=== PATIENT | female | born 1935 | race Caucasian/White ===

== ENCOUNTER 2017-09-08 21:40 | Observation (INO) | payer OTHER ==
[~2017-09-08] VITALS: Ht 160 cm; Wt 75.0 kg
[2017-09-08 21:44] VITALS: BP 198/88; PULSE 74; RESP 16; O2SAT 96
[2017-09-08] MEDS ORDERED: ASPI-516 CHEW (21:53)
[2017-09-08] MEDS ORDERED: SIMV20TA PO (21:53)
[2017-09-08] MEDS ORDERED: HYDR12.56 PO (21:53)
[2017-09-08] MEDS ORDERED: OMEP20TA93 PO (21:53)
[2017-09-08] MEDS ORDERED: TETANUS/DIPHTHERIA TOXOID ADULT 0.5 ML VIAL IM ONE (22:15)
[2017-09-08] MEDS ORDERED: LIDOCAINE HCL 1% 30 ML VIAL INFIL ONE (22:15)
[2017-09-08] MEDS ORDERED: ONDANSETRON HCL 4 MG/2 ML VIAL IV PUSH ONE (22:15)
--- NOTE | 2017-09-08 22:24 | PD ---
HPI Chief Complaint: Fall Time Seen by Provider: 21:50 Travel History International Travel<30 days: No Contact w/Intl Traveler<30days: No Traveled to known affect area: No History of Present Illness HPI 82-year-old female that presents to the ED for evaluation of trip and fall and head injury. Patient does not recall the fall. Patient only [place] She does feel nauseous. She does have a laceration to the left forehead. She denies any blood thinners. She denies any other injuries. No chest pain or abdominal pain. No back pain. She was brought here by ambulance for evaluation of this. Fall was witnessed by family members. Patient was put in a cervical collar secondary to the injury. She has not thrown but she feels nauseous. She is unsure of her last tetanus booster. She states that the pain is mainly to the head and is 6 out of 10. She has not been given anything for this. She denies any previous head injuries or neck injuries. She does have allergies to Bactrim and Macrobid. No other medical issues at this time. She does have a superficial abrasion to the left hand but able to move the fingers fully. He has a very superficial 1 cm laceration to the left forehead. minimal bleeding noted. PFSH Past Medical History Coronary Artery Disease: Yes Hypertension: Yes Tetanus Vaccination: Unknown ?: Not Past Surgical History Joint Replacement: Yes (right shoulder) Social History Alcohol Use: No Tobacco Use: No Substance Use: No Allergies-Medications (Allergen,Severity, Reaction): Coded Allergies: Sulfa (Sulfonamide Antibiotics) (Verified Allergy, Unknown, 09/08/17) nitrofurantoin (Verified Allergy, Unknown, 09/08/17) Reported Meds & Prescriptions Reported Meds & Active Scripts Active Reported Aspirin 81 Mg Chew 81 Mg CHEW DAILY Simvastatin 20 Mg Tab 20 Mg PO DAILY Omeprazole 20 Mg Tab 20 Mg PO DAILY Hydrochlorothiazide 12.5 Mg Tab 12.5 Mg PO DAILY Review of Systems Except as stated in HPI: all other systems reviewed are Neg Physical Exam Narrative GENERAL: SKIN: Warm and dry. HEAD: Atraumatic. Normocephalic. Patient has a superficial laceration which is about 1 cm on the left temporal area around the eyebrow. Minimal bleeding. Well approximated. EYES: Pupils equal and round 4 mm reactive to light and accommodation.. No scleral icterus. No injection or drainage. ENT: No nasal bleeding or discharge. Mucous membranes pink and moist. Tongue is midline. No uvula deviation. NECK: Trachea midline. No JVD. CARDIOVASCULAR: Regular rate and rhythm. RESPIRATORY: No accessory muscle use. Clear to auscultation. Breath sounds equal bilaterally. GASTROINTESTINAL: Abdomen soft, non-tender, nondistended. Hepatic and splenic margins not palpable. MUSCULOSKELETAL: Extremities without clubbing, cyanosis, or edema. No obvious deformities. Full range of motion of the upper and lower extremities bilaterally. No lumbar, thoracic, cervical spine tenderness to palpation. Patient was seen with cervical collar noted. Patient has full range of motion of all digits. Patient does have a very small abrasion to the left hand. NEUROLOGICAL: Awake and alert. No obvious cranial nerve deficits. Motor grossly within normal limits. Five out of 5 muscle strength in the arms and legs. Normal speech. PSYCHIATRIC: Appropriate mood and affect; insight and judgment normal. Data Data Last Documented VS Vital Signs Date Time Temp Pulse Resp B/P (MAP) Pulse Ox O2 Delivery O2 Flow Rate FiO2 09/08/17 21:50 Room Air 09/08/17 21:44 74 16 198/88 (124) 96 Orders Orders Complete Blood Count With Diff (09/08/17 22:08) Basic Metabolic Panel (Bmp) (09/08/17 22:08) Prothrombin Time / Inr (Pt) (09/08/17 22:08) Act Partial Throm Time (Ptt) (09/08/17 22:08) Iv Access Insert/Monitor (09/08/17 22:08) Ct Brain W/O Iv Contrast(Rout) (09/08/17 22:08) Ct Cerv Spine W/O Contrast (09/08/17 22:08) Chest, Single Ap (09/08/17 22:08) Pelvis, Ap Only (Routine) (09/08/17 22:08) Ondansetron Inj (Zofran Inj) (09/08/17 22:15) Tetanus/Diphtheria Tox Adult (Tetanus/Di (09/08/17 22:15) Lidocaine 1% Inj (Xylocaine 1% Inj) (09/08/17 22:15) Labs Laboratory Tests Test 09/08/17 22:05 White Blood Count 8.7 TH/MM3 Red Blood Count 4.51 MIL/MM3 Hemoglobin 13.0 GM/DL Hematocrit 38.6 % Mean Corpuscular Volume 85.7 FL Mean Corpuscular Hemoglobin 28.7 PG Mean Corpuscular Hemoglobin Concent 33.5 % Red Cell Distribution Width 15.0 % Platelet Count 218 TH/MM3 Mean Platelet Volume 8.4 FL Neutrophils (%) (Auto) 54.4 % Lymphocytes (%) (Auto) 32.6 % Monocytes (%) (Auto) 9.0 % Eosinophils (%) (Auto) 3.2 % Basophils (%) (Auto) 0.8 % Neutrophils # (Auto) 4.7 TH/MM3 Lymphocytes # (Auto) 2.8 TH/MM3 Monocytes # (Auto) 0.8 TH/MM3 Eosinophils # (Auto) 0.3 TH/MM3 Basophils # (Auto) 0.1 TH/MM3 CBC Comment DIFF FINAL Differential Comment Prothrombin Time 10.6 SEC Prothromb Time International Ratio 1.0 RATIO Activated Partial Thromboplast Time 21.9 SEC Blood Urea Nitrogen 30 MG/DL Creatinine 1.04 MG/DL Random Glucose 131 MG/DL Calcium Level 8.6 MG/DL Sodium Level 140 MEQ/L Potassium Level 3.1 MEQ/L Chloride Level 103 MEQ/L Carbon Dioxide Level 28.0 MEQ/L Anion Gap 9 MEQ/L Estimat Glomerular Filtration Rate 50 ML/MIN MDM Medical Decision Making Medical Screen Exam Complete: Yes Emergency Medical Condition: Yes Medical Record Reviewed: Yes Differential Diagnosis Head injury versus fracture versus laceration versus concussion versus ICH normal exam Narrative Course 82-year-old female that presents to the ED for evaluation of head injury. Labs and imaging were ordered. Case discussed with my attending Dr. Castañeda who agrees with plan. Case will be sent out to him pending disposition. Procedures Procedure Narrative LACERATION LOCATION: left eyebrow LENGTH: 1 cm NUMBER OF STITCHES/MARY: 4 sutures REPAIR: The area of the laceration was prepped with Betadine and sterilely draped. The laceration was infiltrated with 1% Xylocaine. The wound was copiously irrigated and explored without evidence of foreign body, tendon injury or neurovascular injury. The wound was closed using 4-0 Ethilone. This was a 1 layer repair. A sterile dressing was applied. The patient was advised to keep the dressing clean and dry. Patient tolerated the procedure well. Arie Cordero Sep 08, 2017 22:23
--- NOTE | 2017-09-08 22:32 | RADRPT ---
EXAM DATE/TIME: 09/08/2017 22:17 [facility] COMPARISON: No previous studies available for comparison. INDICATIONS : Fall. Chest pain. MEDICAL HISTORY : None. SURGICAL HISTORY : None. ENCOUNTER: Initial ACUITY: 1 day PAIN SCORE: 7/10 LOCATION: Bilateral chest FINDINGS: A single view of the chest demonstrates the lungs to be symmetrically aerated without evidence of mas s, infiltrate or effusion. Eventration of the right hemidiaphragm. The cardiomediastinal contours ar e unremarkable. Osseous structures are intact. A right humeral head prosthesis. CONCLUSION: No acute disease. Nilesh Guzman Jr., MD on September 08, 2017 at 22:31 Board Certified Radiologist. This report was verified electronically.
[2017-09-08 22:35] LABS: AUTOMATED NEUTROPHIL # 4.7 TH/MM3 (1.8-7.7); BASOPHIL # 0.1 TH/MM3 (0-0.2); BASOPHIL % 0.8 % (0.0-2.0); EOSINOPHIL # 0.3 TH/MM3 (0-0.4); EOSINOPHIL % 3.2 % (0.0-4.0); HEMATOCRIT 38.6 % (35.0-46.0); HEMO FLAGS DIFF FINAL; LYMPH % 32.6 % (9.0-44.0); LYMPHOCYTE # 2.8 TH/MM3 (1.0-4.8); MEAN CELL VOLUME 85.7 FL (80.0-100.0); MEAN CORPUSCULAR HEMOGLOBIN 28.7 PG (27.0-34.0); MEAN CORPUSCULAR HGB CONC 33.5 % (32.0-36.0); NEUT % 54.4 % (16.0-70.0); PLATELET COUNT 218 TH/MM3 (150-450); RED BLOOD COUNT 4.51 MIL/MM3 (4.00-5.30); WHITE BLOOD COUNT 8.7 TH/MM3 (4.0-11.0)
--- NOTE | 2017-09-08 22:36 | RADRPT ---
EXAM DATE/TIME: 09/08/2017 22:18 [facility] COMPARISON: No previous studies available for comparison. INDICATIONS : Fall. Pelvic pain. MEDICAL HISTORY : None. SURGICAL HISTORY : None. ENCOUNTER: Initial ACUITY: 1 day PAIN SCORE: 6/10 LOCATION: Bilateral pelvis FINDINGS: A single frontal view of the pelvis demonstrates no evidence of fracture. The bony pelvic ring is in tact. Osteoarthritis involving the joints bilaterally. Bony mineralization is reduced. The soft tiss ues are intact. CONCLUSION: No acute disease. Nilesh Guzman Jr., MD on September 08, 2017 at 22:33 Board Certified Radiologist. This report was verified electronically.
[2017-09-08 22:40] LABS: POTASSIUM 3.1 MEQ/L (3.5-5.1)
[2017-09-08 22:45] LABS: PROTHROMBIN TIME - PATIENT 10.6 SEC (9.8-11.6)
[2017-09-08 22:46] LABS: APTT (PATIENT) 21.9 SEC (24.3-30.1)
--- NOTE | 2017-09-08 22:48 | RADRPT ---
EXAM DATE/TIME: 09/08/2017 22:32 [facility] COMPARISON: No previous studies available for comparison. INDICATIONS : Trauma; fall. RADIATION DOSE: 27.51 CTDIvol (mGy) MEDICAL HISTORY : Hypertension. Cardiovascular disease SURGICAL HISTORY : Right shoulder replacement. ENCOUNTER: Initial ACUITY: 1 day PAIN SCALE: 7/10 LOCATION: cranial TECHNIQUE: Multiple contiguous axial images were obtained of the head. Using automated exposure control and adj ustment of the mA and/or kV according to patient size, radiation dose was kept as low as reasonably a chievable to obtain optimal diagnostic quality images. DICOM format image data is available electro nically for review and comparison. FINDINGS: CEREBRUM: The ventricles are normal for age. No evidence of midline shift, mass lesion, hemorrhage or acute in farction. No extra-axial fluid collections are seen. POSTERIOR FOSSA: The cerebellum and brainstem are intact. The 4th ventricle is midline. The cerebellopontine angle i s unremarkable. EXTRACRANIAL: The visualized portion of the orbits is intact. Supraorbital soft tissue swelling on the left with a few tiny air bubbles within the subcutaneous tissues. A tiny 2-3 mm radiopaque density is seen within the superficial subcutaneous tissues along the left superolateral orbital rim. Density is matching t hat of the adjacent cortical bone. SKULL: The calvaria is intact. No evidence of skull fracture. CONCLUSION: 1. Left supraorbital soft tissue swelling with tiny radiopaque foreign body as detailed above. 2. No acute intracranial abnormality. Nilesh uGzman Jr., MD on September 08, 2017 at 22:45 Board Certified Radiologist. This report was verified electronically.
--- NOTE | 2017-09-08 22:59 | RADRPT ---
EXAM DATE/TIME: 09/08/2017 22:32 [facility] COMPARISON: No previous studies available for comparison. INDICATIONS : Trauma; fall. RADIATION DOSE: 18.82 CTDIvol (mGy) MEDICAL HISTORY : Hypertension. Cardiovascular disease SURGICAL HISTORY : Right shoulder replacement ENCOUNTER: Initial ACUITY: 1 day PAIN SCALE: 7/10 LOCATION: neck TECHNIQUE: Volumetric scanning of the cervical spine was performed. Multiplanar reconstructions in the sagittal, coronal and oblique axial planes were performed. Using automated exposure control and adjustment o f the mA and/or kV according to patient size, radiation dose was kept as low as reasonably achievable to obtain optimal diagnostic quality images. DICOM format image data is available electronically f or review and comparison. FINDINGS: VERTEBRAE: Normal vertebral body height. ALIGNMENT: No evidence of subluxation. C2-C3: The bony spinal canal is normal in size. No evidence of disc bulge or herniation. The neural forami na are bilaterally patent. C3-C4: The bony spinal canal is normal in size. No evidence of disc bulge or herniation. The neural forami na are bilaterally patent. C4-C5: The bony spinal canal is normal in size. No evidence of disc bulge or herniation. The neural forami na are bilaterally patent. C5-C6: The bony spinal canal is normal in size. No evidence of disc bulge or herniation. The neural forami na are bilaterally patent. C6-C7: The bony spinal canal is normal in size. No evidence of disc bulge or herniation. The neural forami na are bilaterally patent. C7-T1: The bony spinal canal is normal in size. No evidence of disc bulge or herniation. The neural forami na are bilaterally patent. CONCLUSION: 1. No fracture or dislocation. 2. Mild degenerative changes without neural impingement or central canal stenosis. Nilesh Guzman Jr., MD on September 08, 2017 at 22:54 Board Certified Radiologist. This report was verified electronically.
[2017-09-09] VITALS (9 sets, daily range): BP systolic 124–162; BP diastolic 57–99; PULSE 66–79; RESP 16–18; TEMP 97.4–98.1; O2SAT 93–99
[2017-09-09] MEDS ORDERED: ONDANSETRON HCL 4 MG/2 ML VIAL IV PUSH ONE
--- NOTE | 2017-09-09 00:40 | RADRPT ---
EXAM DATE/TIME: 09/09/2017 00:10 [facility] COMPARISON: No previous studies available for comparison. INDICATIONS : Fall. Left hand pain. MEDICAL HISTORY : None. SURGICAL HISTORY : None. ENCOUNTER: Initial ACUITY: 1 day PAIN SCORE: 5/10 LOCATION: Left upper extremity FINDINGS: There is no evidence of acute fracture. Bony mineralization is normal. There is osteoarthritis involv ing the first carpometacarpal compartment. There is erosive osteoarthritis involving all of the inter phalangeal joints. CONCLUSION: 1. There is no evidence of acute fracture. 2. Severe osteoarthritis Jason Chiu MD on September 09, 2017 at 0:37 Board Certified Radiologist. This report was verified electronically.
[2017-09-09] MEDS ORDERED: MORPHINE SULFATE 4 MG/ML INJ IV PUSH PRN (02:30)
[2017-09-09] MEDS ORDERED: ACETAMINOPHEN 325 MG TAB PO PRN (02:30)
[2017-09-09] MEDS ORDERED: LACTULOSE SYRUP 20 GM/30 ML CUP PO PRN (02:30)
[2017-09-09] MEDS ORDERED: SENNOSIDES 8.6 MG TAB PO PRN (02:30)
[2017-09-09] MEDS ORDERED: BISACODYL 10 MG SUPP RECTAL PRN (02:30)
[2017-09-09] MEDS ORDERED: SODIUM CHLORIDE 0.9% FLUSH 10 ML FLUSH IV FLUSH PRN (02:30)
[2017-09-09] MEDS ORDERED: MAGNESIUM HYDROXIDE SUSP 30 ML CUP PO PRN (02:30)
[2017-09-09] MEDS ORDERED: ONDANSETRON HCL 4 MG/2 ML VIAL IVP PRN (02:30)
[2017-09-09] MEDS ORDERED: POTASSIUM CHLORIDE 20 MEQ CONTROLLED RELEASE TAB PO ONE (02:30)
--- NOTE | 2017-09-09 02:47 | HHI.HP ---
[facility] Service [facility] ([place], [place])ists Primary Care Physician Unknown Admission Diagnosis syncope Diagnoses: (1) Syncope Diagnosis: Principal (2) Fall Diagnosis: Principal (3) Facial laceration Diagnosis: Principal (4) HTN (hypertension) Diagnosis: Principal (5) Hypokalemia Diagnosis: Principal (6) Renal insufficiency Diagnosis: Principal Travel History International Travel<30 Days: No Contact w/Intl Traveler <30 Da: No Traveled to Known Affected Are: No History of Present Illness This is an 82-year-old female with a PMH of HTN and CAD was brought to the ER by EMS secondary to fall with head injury. [place], states she was walking w/ Grandson when had sudden fall. Pt cannot recall event , states she remembers walking and then waking up with people around her. No h/ o similar symptoms in the past. CT Head/C-Spine w/ no acute findings. Hand/ Pelvis X-ray negative. +facial laceration s/p repair in ER. BP 198/88, HR 74, O2 sat 96% on arrival. Orthostatics positive. BP currently 142/91, HR 60. CBC unremarkable. K+ 3.1. Creatinine 1.04, no previous labs for comparison. Trop negative. While in ER, patient was assisted out of bed to ambulate, had sudden episode of dizziness and diaphoresis w/ near syncopal event. Review of Systems Except as stated in HPI: all other systems reviewed are Neg ROS: 14 point review of systems otherwise negative. Past Family Social History Past Medical History PMH: HTN and CAD Past Surgical History PAST SURGICAL HISTORY: Right Shoulder Replacement Allergies: Coded Allergies: Sulfa (Sulfonamide Antibiotics) (Verified Allergy, Unknown, 09/08/17) nitrofurantoin (Verified Allergy, Unknown, 09/08/17) Family History PAST FAMILY HISTORY: Reviewed. No h/o DM or CAD Social History PAST SOCIAL HISTORY: Negative for alcohol, tobacco or drugs. Physical Exam Vital Signs Vital Signs Date Time Temp Pulse Resp B/P (MAP) Pulse Ox O2 Delivery O2 Flow Rate FiO2 09/09/17 01:20 79 16 124/80 (95) Room Air 142/91 (108) 152/99 (116) 09/08/17 21:50 Room Air 09/08/17 21:44 74 16 198/88 (124) 96 Physical Exam PE: GENERAL: Elderly white female in no acute distress, however c/o headache. HEENT: PERRLA, EOMI. No scleral icterus or conjunctival pallor. No lid lag or facial droop. +left periorbital ecchymosis, laceration s/p repair. CARDIOVASCULAR: Regular rate and rhythm. No obvious murmurs to auscultation. No chest tenderness to palpation. RESPIRATORY: No obvious rhonchi or wheezing. Clear to auscultation. Breath sounds equal bilaterally. GASTROINTESTINAL: Abdomen soft, non-tender, nondistended. BS normal. MUSCULOSKELETAL: Extremities without clubbing, cyanosis, or edema. No obvious deformities. NEUROLOGICAL: Awake, alert and oriented x4. No focal neurologic deficits. Moving both upper and lower extremities spontaneously. Laboratory Laboratory Tests Test 09/08/17 22:05 White Blood Count 8.7 Red Blood Count 4.51 Hemoglobin 13.0 Hematocrit 38.6 Mean Corpuscular Volume 85.7 Mean Corpuscular Hemoglobin 28.7 Mean Corpuscular Hemoglobin Concent 33.5 Red Cell Distribution Width 15.0 Platelet Count 218 Mean Platelet Volume 8.4 Neutrophils (%) (Auto) 54.4 Lymphocytes (%) (Auto) 32.6 Monocytes (%) (Auto) 9.0 Eosinophils (%) (Auto) 3.2 Basophils (%) (Auto) 0.8 Neutrophils # (Auto) 4.7 Lymphocytes # (Auto) 2.8 Monocytes # (Auto) 0.8 Eosinophils # (Auto) 0.3 Basophils # (Auto) 0.1 CBC Comment DIFF FINAL Differential Comment Prothrombin Time 10.6 Prothromb Time International Ratio 1.0 Activated Partial Thromboplast Time 21.9 Blood Urea Nitrogen 30 Creatinine 1.04 Random Glucose 131 Calcium Level 8.6 Sodium Level 140 Potassium Level 3.1 Chloride Level 103 Carbon Dioxide Level 28.0 Anion Gap 9 Estimat Glomerular Filtration Rate 50 Troponin I LESS THAN 0.02 Result Diagram: 09/08/17220409/08/172204 Caprini VTE Risk Assessment Caprini VTE Risk Assessment: No/Low Risk (score <= 1) Caprini Risk Assessment Model Point Value = 1 Point Value = 2 Point Value = 3 Point Value = 5 Age 41-60 Minor surgery BMI > 25 kg/m2 Swollen legs Varicose veins or History of unexplained or recurrent spontaneous Oral contraceptives or hormone replacement Sepsis (< 1 month) Serious lung disease, including pneumonia (< 1 month) Abnormal pulmonary function Acute myocardial infarction Congestive heart failure (< 1 month) History of inflammatory bowel disease Medical patient at bed rest Age 61-74 Arthroscopic surgery Major open surgery (> 45 min) Laparoscopic surgery (> 45 min) Malignancy Confined to bed (> 72 hours) Immobilizing plaster cast Central venous access Age >= 75 History of VTE Family history of VTE Factor V Leiden Prothrombin [id number] Lupus anticoagulant Anticardiolipin antibodies Elevated serum homocysteine Heparin-induced thrombocytopenia Other congenital or acquired thrombophilia Stroke (< 1 month) Elective arthroplasty Hip, pelvis, or leg fracture Acute spinal cord injury (< 1 month) Prophylaxis Regimen Total Risk Factor Score Risk Level Prophylaxis Regimen 0-1 Low Early ambulation 2 Moderate Order ONE of the following: *Sequential Compression Device (SCD) *Heparin 5000 units SQ BID 3-4 Higher Order ONE of the following medications: *Heparin 5000 units SQ TID *Enoxaparin/Lovenox 40 mg SQ daily (WT < 150 kg, CrCl > 30 mL/min) *Enoxaparin/Lovenox 30 mg SQ daily (WT < 150 kg, CrCl > 10-29 mL/min) *Enoxaparin/Lovenox 30 mg SQ BID (WT < 150 kg, CrCl > 30 mL/min) AND/OR *Sequential Compression Device (SCD) 5 or more Highest Order ONE of the following medications: *Heparin 5000 units SQ TID (Preferred with Epidurals) *Enoxaparin/Lovenox 40 mg SQ daily (WT < 150 kg, CrCl > 30 mL/min) *Enoxaparin/Lovenox 30 mg SQ daily (WT < 150 kg, CrCl > 10-29 mL/min) *Enoxaparin/Lovenox 30 mg SQ BID (WT < 150 kg, CrCl > 30 mL/min) AND *Sequential Compression Device (SCD) Assessment and Plan Problem List: (1) Syncope ICD Code: R55 - Syncope and collapse (2) Fall ICD Code: W19.XXXA - Unspecified fall, initial encounter (3) Facial laceration ICD Code: S01.81XA - Laceration without foreign body of other part of head, initial encounter (4) Hypokalemia ICD Code: E87.6 - Hypokalemia (5) Renal insufficiency ICD Code: N28.9 - Disorder of kidney and ureter, unspecified (6) HTN (hypertension) ICD Code: I10 - Essential (primary) hypertension Assessment and Plan A/P: 1. Syncope: pt w/ no recollection of events, sudden syncope[place]. No h/o similar symptoms. CT Head/C-Spine w/ no acute findings, images reviewed by me. Likely vasovagal secondary to dehydration, + Orthostatics. R/o underlying cardiac etiology, initial trop negative, check serial cardiac enzymes. Check Echo. 2. Fall: Family reports mechanical trip and fall, pt cannot recall events. Hand/Pelvis X-ray w/ no acute fractures, images reviewed by me. 3. Facial Laceration: secondary to above, s/p repair in ER, c/o headache, analgesics/antiemetics as needed. 4. STACY: Creatinine 1.04, no previous labs for comparison. Check U/a, IVF for hydration, repeat labs in am. 5. Hypokalemia: K+ 3.1, will replace and recheck in am. 6. HTN: BP 190's on arrival, likely compounded by fall w/ head trauma and c/o headache. BP currently 140's, will monitor. 7. DVT Prophylaxis: SCD/Teds. 8. Social work for d/c planning as needed. 9. Case discussed w/ ER physician at length. Rachel Obrien MD Sep 09, 2017 02:47
[2017-09-09] MEDS: SODIUM CHLOR 0.9% 1000 ML INJ 1,000 ML IV SCH ×2 (02:55→13:58)
[2017-09-09] MEDS ORDERED: MORPHINE SULFATE 2 MG/ML INJ IV PUSH ONE (09:00)
[2017-09-09 09:12] LABS: BASOPHIL # 0.1 TH/MM3 (0-0.2); BASOPHIL % 0.7 % (0.0-2.0); EOSINOPHIL % 0.4 % (0.0-4.0); HEMATOCRIT 36.8 % (35.0-46.0); HEMO FLAGS DIFF FINAL; LYMPH % 18.8 % (9.0-44.0); LYMPHOCYTE # 1.3 TH/MM3 (1.0-4.8); MEAN CELL VOLUME 85.6 FL (80.0-100.0); MEAN CORPUSCULAR HEMOGLOBIN 28.7 PG (27.0-34.0); MEAN CORPUSCULAR HGB CONC 33.5 % (32.0-36.0); MONO % 8.7 % (0.0-8.0); NEUT % 71.4 % (16.0-70.0); PLATELET COUNT 198 TH/MM3 (150-450); RED CELL DISTRIBUTION WIDTH 14.9 % (11.6-17.2)
--- NOTE | 2017-09-09 09:13 | HHI.PR ---
Subjective Remarks Follow up for fall, head injury. The patient reports feeling sore today. Reports headache, worse at left frontotemporal area at site of laceration. Denies any visual changes, lightheadedness, or dizziness. She reports her daughter has been working at the [facility] [employer] all week therefore the patient has been taking care of the grandchildren. She states all week long she has had to drive them to and from school, prepare meals, etc. She states she has been much more active this week than previously and she admits she probably wasn't eating and drinking as usual. Denies any recent vomiting/diarrhea. The patient does not recall the events leading up to the fall yesterday. She states she was told she tripped over a speed bump. She denies any symptoms prior to the episode including no lightheadedness, dizziness, chest pain, palpitations, or shortness of breath. The next thing she remembers is sitting on a bench. She felt slightly nauseous after the fall. She has no other medical complaints at this time. Objective Vitals Vital Signs Date Time Temp Pulse Resp B/P (MAP) Pulse Ox O2 Delivery O2 Flow Rate FiO2 09/09/17 07:32 97.7 70 16 125/60 (81) 98 09/09/17 04:09 98.0 74 17 162/71 (101) 97 09/09/17 03:42 79 16 159/70 (99) 97 09/09/17 03:25 17 09/09/17 01:20 79 16 124/80 (95) Room Air 142/91 (108) 152/99 (116) 09/08/17 21:50 Room Air 09/08/17 21:44 74 16 198/88 (124) 96 I/O 09/08/17 09/08/17 09/08/17 09/09/17 09/09/17 09/09/17 07:00 15:00 23:00 07:00 15:00 23:00 Intake Total 240 ml Balance 240 ml Intake Oral 240 ml # Voids 1 Result Diagram: 09/08/17220409/08/172204 Imaging Last Impressions Hand X-Ray 09/09/17 0000 Signed Impressions: Service Date/Time: Saturday, September 09, 2017 00:10 - CONCLUSION: 1. There is no evidence of acute fracture. 2. Severe osteoarthritis Jason Chiu MD Pelvis X-Ray 09/08/172207 Signed Impressions: Service Date/Time: Friday, September 08, 2017 22:18 - CONCLUSION: No acute disease. Nilesh Guzman Jr., MD Head CT 09/08/172207 Signed Impressions: Service Date/Time: Friday, September 08, 2017 22:32 - CONCLUSION: 1. Left supraorbital soft tissue swelling with tiny radiopaque foreign body as detailed above. 2. No acute intracranial abnormality. Nilesh Guzman Jr., MD Chest X-Ray 09/08/172207 Signed Impressions: Service Date/Time: Friday, September 08, 2017 22:17 - CONCLUSION: No acute disease. Nilesh Guzman Jr., MD Cervical Spine CT 09/08/172207 Signed Impressions: Service Date/Time: Friday, September 08, 2017 22:32 - CONCLUSION: 1. No fracture or dislocation. 2. Mild degenerative changes without neural impingement or central canal stenosis. Nilesh Guzman Jr., MD Objective Remarks GENERAL: Well-nourished, well-developed pleasant elderly female patient in [facility]. SKIN: Warm and dry. HEENT: Normocephalic. Left periorbital ecchymosis with left forehead laceration s/p repair, covered with dressing, CDI. Pupils equal and round. EOMI. Left eye subconjunctival hemorrhage. Mucous membranes pink and moist. NECK: Supple. Trachea midline. CARDIOVASCULAR: Regular rate and rhythm. S1, S2 noted. No murmur appreciated. RESPIRATORY: No accessory muscle use. Clear to auscultation. Breath sounds equal bilaterally. GASTROINTESTINAL: Abdomen soft, non-tender, nondistended. Normoactive bowel sounds x4. MUSCULOSKELETAL: No obvious deformities. Extremities without clubbing, cyanosis , or edema. Left anterior knee with mild edema and ecchymosis. Left hand with mild edema and ecchymosis. NEUROLOGICAL: Awake and alert. No obvious cranial nerve deficits. Motor grossly within normal limits. 5/5 muscle strength in bilateral upper and lower extremities. Normal speech. PSYCHIATRIC: Appropriate mood and affect; insight and judgment normal. Medications and IVs Current Medications Medications (Trade) Dose Ordered Sig/Rosa Route Start Time Stop Time Status Last Admin Sodium Chloride 1,000 ml @ 70 mls/hr [id number] IV 09/09/17 02:18 09/09/17 02:55 (NS Flush) 2 ml UNSCH PRN IV FLUSH 09/09/17 02:30 (NS Flush) 2 ml BID IV FLUSH 09/09/17 09:00 09/09/17 09:26 (Zofran Inj) 4 mg Q6H PRN IVP 09/09/17 02:30 09/09/17 02:50 (Tylenol) 650 mg Q6H PRN PO 09/09/17 02:30 ([place] 5-325 Mg) 1 tab Q4H PRN PO 09/09/17 02:30 (Morphine Inj) 2 mg Q3H PRN IV PUSH 09/09/17 02:30 09/09/17 02:48 (Jessica-Colace) 1 tab BID PO 09/09/17 09:00 09/09/17 09:25 (Milk Of Magnesia Liq) 30 ml Q12H PRN PO 09/09/17 02:30 (Senokot) 17.2 mg Q12H PRN PO 09/09/17 02:30 (Dulcolax Supp) 10 mg DAILY PRN RECTAL 09/09/17 02:30 (Lactulose Liq) 30 ml DAILY PRN PO 09/09/17 02:30 (Aspirin Chew) 81 mg DAILY CHEW 09/09/17 09:00 09/09/17 09:25 (Protonix) 20 mg DAILY PO 09/09/17 09:00 09/09/17 09:25 (Pravachol) 40 mg DAILY PO 09/09/17 09:00 09/09/17 09:25 A/P Problem List: (1) Syncope ICD Code: R55 - Syncope and collapse (2) Fall ICD Code: W19.XXXA - Unspecified fall, initial encounter (3) Facial laceration ICD Code: S01.81XA - Laceration without foreign body of other part of head, initial encounter (4) Hypokalemia ICD Code: E87.6 - Hypokalemia (5) Renal insufficiency ICD Code: N28.9 - Disorder of kidney and ureter, unspecified (6) HTN (hypertension) ICD Code: I10 - Essential (primary) hypertension Assessment and Plan 82-year-old female with a PMH of HTN and CAD was brought to the ER by EMS secondary to fall with head injury. Syncope: pt w/ no recollection of events, sudden syncope/fall while walking at the [facility]. No h/o similar symptoms. Suspect vasovagal secondary to dehydration, +Orthostatics. Rule out underlying neurocardiogenic etiology. -CT Head/C-Spine w/ no acute findings, images reviewed by me. -Troponins negative x2 and EKG shows sinus rhythm without acute ischemic changes, doubt ACS -Check Echocardiogram -Consult PT -Give IVF -Apply demarcus hose, Patient counseled on slow transitions -continue to monitor orthostatics Fall with Head Injury/Facial Laceration: Family reports mechanical trip and fall, however pt cannot recall events, syncope work up as above -Head CT images reviewed, showed left supraorbital soft tissue swelling with tiny radiopaque foreign body -Facial laceration copiously irrigated by ER PA without any evidence of foreign body; laceration repaired with sutures -Other imaging including C-spine CT, pelvis xray, chest xray, and hand xray all reviewed and unremarkable for fracture -Pain control with norco prn, IV morphine prn breakthrough pain -apply ice packs STACY: Creatinine 1.04, BUN 30, GFR 50, no previous labs for comparison. -Check U/a -Give IVF for hydration -Repeat labs show improvement, Cr 0.73 -Continue to monitor Hypokalemia: K+ 3.1, suspect secondary to dehydration -given po KCl replacement -repeat BMP with K 3.9, resolved HTN: BP 190's on arrival, likely compounded by fall w/ head trauma and c/o headache. BP currently 140's, will monitor. -BP much improved, currently BP 120s/50s DVT Prophylaxis: SCD/Teds. Discharge Planning Possible discharge after echocardiogram resulted and patient evaluated by physical therapy, possibly later today or tomorrow. Cheyanne Luevano PA-C Sep 09, 2017 9:13 am
[2017-09-09] MEDS: ASPIRIN 81 MG CHEW TAB CHEW SCH (09:25)
[2017-09-09] MEDS: PRAVASTATIN SOD 40 MG TAB PO SCH (09:25)
[2017-09-09] MEDS: PANTOPRAZOLE SOD 20 MG DELAYED RELEASE TAB PO SCH (09:25)
[2017-09-09] MEDS: DOCUSATE SODIUM 50 MG/SENNA 8.6 MG TAB PO SCH ×2 (09:25→21:24)
[2017-09-09] MEDS: SODIUM CHLORIDE 0.9% FLUSH 10 ML FLUSH IV FLUSH SCH ×2 (09:26→21:24)
[2017-09-09 09:44] LABS: ANION GAP 9 MEQ/L (5-15); AST (GOT) 18 U/L (15-37); BICARBONATE 24.7 MEQ/L (21.0-32.0); BLOOD UREA NITROGEN 23 MG/DL (7-18); CHLORIDE 106 MEQ/L (98-107); GLOMERULAR FILTRATION RATE 76 ML/MIN (>89); POTASSIUM 3.9 MEQ/L (3.5-5.1); SODIUM (NA) 140 MEQ/L (136-145)
[2017-09-09 09:45] LABS: ALT (GPT) 20 U/L (10-53)
[2017-09-09 09:49] LABS: ALKALINE PHOSPHATASE 84 U/L (45-117); TOTAL BILIRUBIN ADULT 1.2 MG/DL (0.2-1.0)
--- NOTE | 2017-09-09 12:27 | EKG ---
Date Performed: 09/09/2017 Time Performed: 02:04:03 PTAGE: 82 years EKG: Sinus rhythm NORMAL ECG NO PREVIOUS TRACING DOCTOR: Eliseo Casas Interpretating Date/Time 09/09/2017 12:27:02
--- NOTE | 2017-09-09 12:58 | HHI.DCPOC ---
Discharge Care Plan Diagnosis: (1) Dehydration (2) Fall (3) Syncope (4) Facial laceration Goals to Promote Your Health * To prevent worsening of your condition and complications * To maintain your health at the optimal level Directions to Meet Your Goals Take your medications as prescribed Follow your dietary instruction Follow activity as directed Keep your appointments as scheduled Take your immunizations and boosters as scheduled If your symptoms worsen call your PCP, if no PCP go to Urgent Care Center or Emergency Room Smoking is Dangerous to Your Health. Avoid second hand smoke Call the 24-hour hour crisis hotline for domestic abuse at Cheyanne Luevano PA-C Sep 09, 2017 12:58 pm
[2017-09-09] MEDS: ACETAMINOPHEN/HYDROcodone 325 MG/5 MG TAB PO PRN (21:57)
[2017-09-10] VITALS (9 sets, daily range): BP systolic 127–170; BP diastolic 59–71; PULSE 55–88; RESP 16–18; TEMP 97.5–98.4; O2SAT 94–100
[2017-09-10] MEDS: SODIUM CHLOR 0.9% 1000 ML INJ 1,000 ML IV SCH (00:33)
[2017-09-10] MEDS: DOCUSATE SODIUM 50 MG/SENNA 8.6 MG TAB PO SCH ×2 (09:11→21:09)
[2017-09-10] MEDS: ACETAMINOPHEN/HYDROcodone 325 MG/5 MG TAB PO PRN ×2 (09:11→21:09)
[2017-09-10] MEDS: PRAVASTATIN SOD 40 MG TAB PO SCH (09:12)
[2017-09-10] MEDS: PANTOPRAZOLE SOD 20 MG DELAYED RELEASE TAB PO SCH (09:12)
[2017-09-10] MEDS: ASPIRIN 81 MG CHEW TAB CHEW SCH (09:12)
[2017-09-10] MEDS: SODIUM CHLORIDE 0.9% FLUSH 10 ML FLUSH IV FLUSH SCH ×2 (09:12→21:08)
[2017-09-10] MEDS ORDERED: SODIUM CHLOR 0.9% 1000 ML INJ 1,000 ML IV SCH (10:15)
--- NOTE | 2017-09-10 14:53 | HHI.PR ---
Subjective Remarks Follow-up syncope. Improving headache and nausea. Was dizzy earlier. Still orthostatic. Discussed with RN Objective Vitals Vital Signs Date Time Temp Pulse Resp B/P (MAP) Pulse Ox O2 Delivery O2 Flow Rate FiO2 09/10/17 11:46 132/61 (84) 127/59 (81) 09/10/17 11:42 97.5 63 16 136/60 (85) 94 09/10/17 08:14 98.1 82 18 170/71 (104) 95 156/69 (98) 130/62 (84) 09/10/17 03:52 97.9 73 18 132/61 (84) 95 09/09/17 23:53 98.1 68 18 128/59 (82) 93 09/09/17 21:06 98.1 69 18 145/64 (91) 99 09/09/17 15:40 98.0 67 16 127/60 (82) 97 I/O 09/09/17 09/09/17 09/09/17 09/10/17 09/10/17 09/10/17 07:00 15:00 23:00 07:00 15:00 23:00 Intake Total 240 ml 300 ml 700 ml Balance 240 ml 300 ml 700 ml Intake Oral 240 ml 300 ml IV Total 700 ml # Voids 1 4 1 Result Diagram: 09/09/17 0755 09/09/17 0755 Imaging Last Impressions Hand X-Ray 09/09/17 0000 Signed Impressions: Service Date/Time: Saturday, September 09, 2017 00:10 - CONCLUSION: 1. There is no evidence of acute fracture. 2. Severe osteoarthritis Jason Chiu MD Pelvis X-Ray 09/08/172207 Signed Impressions: Service Date/Time: Friday, September 08, 2017 22:18 - CONCLUSION: No acute disease. Nilesh Guzman Jr., MD Head CT 09/08/172207 Signed Impressions: Service Date/Time: Friday, September 08, 2017 22:32 - CONCLUSION: 1. Left supraorbital soft tissue swelling with tiny radiopaque foreign body as detailed above. 2. No acute intracranial abnormality. Nilesh Guzman Jr., MD Chest X-Ray 09/08/172207 Signed Impressions: Service Date/Time: Friday, September 08, 2017 22:17 - CONCLUSION: No acute disease. Nilesh Guzman Jr., MD Cervical Spine CT 09/08/17 2208 Signed Impressions: Service Date/Time: Friday, September 08, 2017 22:32 - CONCLUSION: 1. No fracture or dislocation. 2. Mild degenerative changes without neural impingement or central canal stenosis. Nilesh Guzman Jr., MD Objective Remarks GENERAL: Well-nourished, well-developed pleasant elderly female patient in [facility]. SKIN: Warm and dry. HEENT: Normocephalic. Left periorbital ecchymosis with left forehead laceration s/p repair, covered with dressing, CDI. Pupils equal and round. EOMI. Left eye subconjunctival hemorrhage. Mucous membranes pink and moist. NECK: Supple. Trachea midline. CARDIOVASCULAR: Regular rate and rhythm. S1, S2 noted. No murmur appreciated. RESPIRATORY: No accessory muscle use. Clear to auscultation. Breath sounds equal bilaterally. GASTROINTESTINAL: Abdomen soft, non-tender, nondistended. Normoactive bowel sounds x4. MUSCULOSKELETAL: No obvious deformities. Extremities without clubbing, cyanosis , or edema. Left anterior knee with mild edema and ecchymosis. Left hand with mild edema and ecchymosis. NEUROLOGICAL: Awake and alert. No obvious cranial nerve deficits. Motor grossly within normal limits. 5/5 muscle strength in bilateral upper and lower extremities. Normal speech. Procedures none A/P Problem List: (1) Syncope ICD Code: R55 - Syncope and collapse (2) Fall ICD Code: W19.XXXA - Unspecified fall, initial encounter (3) Facial laceration ICD Code: S01.81XA - Laceration without foreign body of other part of head, initial encounter (4) Hypokalemia ICD Code: E87.6 - Hypokalemia (5) Renal insufficiency ICD Code: N28.9 - Disorder of kidney and ureter, unspecified (6) HTN (hypertension) ICD Code: I10 - Essential (primary) hypertension Assessment and Plan 82-year-old female with a PMH of HTN and CAD was brought to the ER by EMS secondary to fall with head injury. Syncope: pt w/ no recollection of events, sudden syncope/fall while walking at the [facility]. No h/o similar symptoms. Suspect vasovagal secondary to dehydration, +Orthostatics. Rule out underlying neurocardiogenic etiology. -CT Head/C-Spine w/ no acute findings, images reviewed by me. -Troponins negative x2 and EKG shows sinus rhythm without acute ischemic changes, doubt ACS -Follow-up Echocardiogram monitor on telemetry. Obtain EEG -Consult PT -Give IVF -Apply demarcus hose, Patient counseled on slow transitions -continue to monitor orthostatics. Consult neurology Fall with Head Injury/Facial Laceration with concussion: Family reports mechanical trip and fall, however pt cannot recall events, syncope work up as above -Head CT images reviewed, showed left supraorbital soft tissue swelling with tiny radiopaque foreign body -Facial laceration copiously irrigated by ER PA without any evidence of foreign body; laceration repaired with sutures -Other imaging including C-spine CT, pelvis xray, chest xray, and hand xray all reviewed and unremarkable for fracture -Pain control with norco prn, IV morphine prn breakthrough pain -apply ice packs STACY: Creatinine 1.04, BUN 30, GFR 50, no previous labs for comparison. -Check U/a -Give IVF for hydration -Repeat labs show improvement, Cr 0.73 -Continue to monitor Hypokalemia: K+ 3.1, suspect secondary to dehydration -given po KCl replacement -repeat BMP with K 3.9, resolved HTN: BP 190's on arrival, likely compounded by fall w/ head trauma and c/o headache. BP currently 140's, will monitor. -BP much improved, currently BP 120s/50s DVT Prophylaxis: SCD/Teds. Hold pharmacological prophylaxis secondary to closed head injury Discharge Planning Not stable for discharge Eduar Beck MD Sep 10, 2017 14:53
[2017-09-11] VITALS (7 sets, daily range): BP systolic 129–199; BP diastolic 70–86; PULSE 69–74; RESP 18–22; TEMP 97.5–98.4; O2SAT 96–99
--- NOTE | 2017-09-11 07:16 | MB ---
cc: JESI RUIZ M.D. DATE OF CONSULTATION 09/11/2017 REASON FOR CONSULTATION Syncope. HISTORY OF PRESENT ILLNESS Ms. Lopez is a very pleasant 82-year-old female who states she was in her usual state of good health until [place], was feeling well. She had no difficulty, then suddenly apparently fell and hit her head. She does not recall the fall so there is some concern of loss of consciousness. Apparently this was fairly brief. She was then placed in a chair, was back to normal. No type of postictal state. There was no witnessed tonic-clonic activity, no focal deficits. She states that she ate normally and drink fluids normally throughout the day with no sign of dehydration. PAST MEDICAL HISTORY 1. History of shoulder surgery. 2. Hypertension. 3. Coronary artery disease. CURRENT MEDICATIONS 1. Senna. 2. Aspirin 81 mg daily. 3. Protonix 20 mg daily. 4. Pravachol 40 mg daily. NEUROLOGIC EXAMINATION VITAL SIGNS: Blood pressure 148/65 supine, pulse 78 and regular, respiratory rate is 18, temperature 99 degrees. HIGHER CORTICAL FUNCTIONS: Normal. CRANIAL NERVES: Intact. MOTOR EXAM: 5/5 strength of all groups. There is no drift. REFLEXES: Symmetric. SENSORY EXAM: Intact. IMAGING STUDIES CT of the brain is normal intracranially. There is some superolateral soft tissue swelling on the left side, tiny radio-opaque foreign body noted which is in the superficial subcutaneous tissue along the left supraorbital rim. CT cervical spine - No fracture. Mild degenerate disk disease. LABORATORY DATA The white count is 7000, hemoglobin 12.3, hematocrit 36%, platelets 198,000. PT 10.6, INR 1, APTT 21.9. Sodium is 140, potassium 3.9, chloride 106, CO2 24.7, the BUN is 23, creatinine 0.73, GFR 76, glucose is 94, AST 18, ALT is 20, albumin 3.0. EKG Normal sinus rhythm. IMPRESSION Syncope, possible vasovagal reaction, possible orthostatic hypotension. I doubt stroke or seizure. RECOMMENDATIONS 1. Will proceed with an MRI of the brain just to be sure there was no acute stroke, although there are no focal deficits. 2. We will also obtain a carotid ultrasound and echocardiogram. 3. Recommend checking orthostatic blood pressure and pulse. 4. Cardiology evaluation to rule out arrhythmia. MD ANJALI Doshi /6:16 AM /7:12 AM
--- NOTE | 2017-09-11 08:23 | RADRPT ---
EXAM DATE/TIME: 09/11/2017 07:49 [place] COMPARISON: No previous studies available for comparison. INDICATIONS : Syncope. MEDICAL HISTORY : Hypercholesterolemia. Hypertension. Coronary artery disease. Skin cancer. UTI. SURGICAL HISTORY : Hysterectomy. Colon surgery. Right shoulder replacement. Blood transfusions. ENCOUNTER: Initial ACUITY: 3 days PAIN SCORE: 4/10 LOCATION: Bilateral neck PEAK SYSTOLIC VELOCITIES (cm/sec): ICA/CCA RATIO: Right: 1.1 Left: 1.1 ICA: Right: 106 Left: 124 CCA: Right: 95 Left: 112 ECA: Right: 75 Left: 75 VERTEBRAL: Right: 53 antegrade Left: 55 antegrade Elevated flow velocities and ICA/CCA ratios have been found to correlate with increased degrees of vessel stenosis, calculated as percentage of diameter relative to a normal segment of distal ICA/CCA FINDINGS: RIGHT CAROTID: Minimal plaque in the carotid bulb extending into the proximal internal. The waveforms are within no rmal limits. LEFT CAROTID: Minimal plaque in the carotid bulb. Tortuosity of the internal. The waveforms are within normal limi ts. VERTEBRAL ARTERIES: Antegrade flow is seen in both vertebral arteries. MISCELLANEOUS: None. CONCLUSION: 1. Minimal plaque in both carotid bulbs with extension into the right internal. 2. Tortuosity of the left internal carotid artery. 3. However, no sonographic or Doppler findings of a hemodynamically significant stenosis. Antegrade f low in both vertebral arteries. Carlos Manuel Thacker MD on September 11, 2017 at 8:19 Board Certified Radiologist. This report was verified electronically.
--- NOTE | 2017-09-11 08:56 | MB ---
cc: VIJAY DAHL MD DATE OF CONSULTATION: 09/11/2017 REASON FOR CONSULTATIONS Syncope. HISTORY OF PRESENT ILLNESS Ms. Lopez is a pleasant 82-year-old female who does have a history of hypertension, hyperlipidemia and gastroesophageal reflux disease. She reports [place] when she essentially woke up on the ground. She has no recollection of the fall. She denies any prior syncopal episodes. There were no prodromal symptoms. The patient reports that she had less than 16 ounces of fluid over the course of the day. OUTPATIENT MEDICATIONS Include: 1. Aspirin. 2. Hydrochlorothiazide 12.5 mg a day. 3. Simvastatin 20 mg q. h.s. 4. Omeprazole 20 mg a day. ALLERGIES SULFA AND NITROPHERYNTOIN. PAST MEDICAL HISTORY Past medical history is significant for hypertension, hyperlipidemia, GERD. SOCIAL HISTORY The patient does not drink or smoke. FAMILY HISTORY Noncontributory. REVIEW OF SYSTEMS Except as mentioned in the HPI, all 12-systems are negative. PHYSICAL EXAMINATION VITAL SIGNS: Initial blood pressure was 198/88 with a heart rate of 74. Current vitals are 98.4, 70, 18, 129/79. GENERAL: She is a well-appearing female, in no apparent distress. She does have a large amount of ecchymosis over the left orbit and periorbital area. NECK: Free from JVD. LUNGS: The lungs are bilaterally clear to auscultation. CARDIOVASCULAR: She has a normal S1 and S2. I did not appreciate murmurs, rubs or gallops. ABDOMEN: The abdomen is soft. EXTREMITIES: Are free from edema. IMAGING STUDIES Chest x-ray is negative for any acute process. Initial head CT is negative for any acute intracranial abnormality. Telemetry - this is remarkable only for normal sinus rhythm. LABORATORY DATA Lab values significant for serial troponins of less than 0.02. Her initial BUN was 30 and creatinine of 1.0 with a potassium of 3.1. IMPRESSION Syncope - there is no overt cardiac etiology. Her ECG, enzymes and telemetry are negative thus far. With her history of poor p.o. fluid intake because she did not want to go to the bathroom at the [facility] and concomitant labs that are consistent with: Namely an elevated BUN to creatinine ratio and hypokalemia, it does appear that dehydration is most likely. Nonetheless, I do agree with a complete workup given her cardiac risk factors. We did discuss further evaluation with a nuclear stress test. An echocardiogram remains pending as does the carotid ultrasound. If this study is nonischemic, it is reasonable for her to be discharged home. I did diet counselor the patient on proper p.o. intake. She is currently off of the hydrochlorothiazide and this appears reasonable with her current blood pressure. If the study is nonischemic, it is reasonable for her to be discharged home. Vijay Dahl M.D. DULCE/TLRobinson /8:28 AM /8:40 AM
[2017-09-11] MEDS: ASPIRIN 81 MG CHEW TAB CHEW SCH (09:00)
--- NOTE | 2017-09-11 12:36 | ECHRPT ---
Indication: Cardiomyopathy, unspecified CONCLUSIONS The transthoracic study is normal by two-dimensional, color flow imaging and Doppler interrogation. BP: 166 / 71 HR: Rhythm: MEASUREMENTS (Male / Female) Normal Values Technical Quality:Good 2D ECHO LV Diastolic Diameter PLAX 3.6 cm 4.2 - 5.9 / 3.9 - 5.3 cm LV Systolic Diameter PLAX 2.5 cm IVS Diastolic Thickness 1.1 cm 0.6 - 1.0 / 0.6 - 0.9 cm LVPW Diastolic Thickness 0.9 cm 0.6 - 1.0 / 0.6 - 0.9 cm LV Relative Wall Thickness 0.6 RV Internal Dim ED PLAX 2.3 cm M-MODE Aortic Root Diameter MM 2.4 cm LA Systolic Diameter MM 3.9 cm LA Ao Ratio MM 1.6 AV Cusp Separation MM 1.3 cm DOPPLER Mitral E Point Velocity 132.0 cm/s Mitral A Point Velocity 95.6 cm/s Mitral E to A Ratio 1.4 LV E' Lateral Velocity 8.6 cm/s Mitral E to LV E' Lateral Ratio 15.4 TR Peak Velocity 302.0 cm/s TR Peak Gradient 36.5 mmHg Right Atrial Pressure 10.0 mmHg Pulmonary Artery Systolic Pressu 46.5 mmHg Right Ventricular Systolic Press 46.5 mmHg FINDINGS LEFT VENTRICLE Normal left ventricular size and wall thickness. The left ventricular systolic function is normal wi th an estimated ejection fraction in the range of 60-65%. Left ventricular diastolic function parameters a re normal. RIGHT VENTRICLE Normal right ventricular size and systolic function. LEFT ATRIUM The left atrial size is normal. RIGHT ATRIUM The right atrial size is normal. ATRIAL SEPTUM Normal atrial septal thickness without atrial level shunting by limited color doppler interrogation. AORTA The aortic root and proximal ascending aorta are not well visualized. MITRAL VALVE Trace mitral valve regurgitation. Structurally normal mitral valve. AORTIC VALVE Trileaflet aortic valve. No aortic valve stenosis or regurgitation. TRICUSPID VALVE There is mild tricuspid valve regurgitation. Structurally normal tricuspid valve. There is estimated mild pulmonary hypertension present (range 40-50 mmHg). PULMONARY VALVE . VESSELS The inferior vena cava is normal in size. PERICARDIUM There is no pericardial effusion. Kamla Davison MD, FACC (Electronically Signed) Final Date:11 September 2017 12:35
--- NOTE | 2017-09-11 12:56 | HHI.PR ---
Subjective Remarks Follow-up syncope and concussion. Patient is feeling better and wants to go home. Aware she needs to complete stress test and will likely need to stay overnight. Objective Vitals Vital Signs Date Time Temp Pulse Resp B/P (MAP) Pulse Ox O2 Delivery O2 Flow Rate FiO2 09/11/17 12:12 97.5 73 22 166/71 (102) 96 09/11/17 08:22 98.4 72 22 148/70 (96) 96 09/11/17 03:52 98.4 70 18 129/79 (96) 99 09/10/17 23:46 98.4 78 18 148/65 (92) 97 09/10/17 23:00 55 09/10/17 22:09 18 09/10/17 19:47 98.4 88 18 136/63 (87) 100 09/10/17 16:20 61 09/10/17 15:31 98.4 61 16 133/60 (84) 95 130/59 (82) 137/62 (87) I/O 09/10/17 09/10/17 09/10/17 09/11/17 09/11/17 09/11/17 07:00 15:00 23:00 07:00 15:00 23:00 Intake Total 300 ml 700 ml 120 ml Balance 300 ml 700 ml 120 ml Intake Oral 300 ml 120 ml IV Total 700 ml # Voids 1 3 # Bowel Movements 0 Result Diagram: 09/09/17 0755 09/09/17 0755 Imaging Last Impressions Carotid Artery Ultrasound 09/11/17 0000 Signed Impressions: Service Date/Time: Monday, September 11, 2017 07:49 - CONCLUSION: 1. Minimal plaque in both carotid bulbs with extension into the right internal. 2. Tortuosity of the left internal carotid artery. 3. However, no sonographic or Doppler findings of a hemodynamically significant stenosis. Antegrade flow in both vertebral arteries. Carlos Manuel Thacker MD Hand X-Ray 09/09/17 0000 Signed Impressions: Service Date/Time: Saturday, September 09, 2017 00:10 - CONCLUSION: 1. There is no evidence of acute fracture. 2. Severe osteoarthritis Jason Chiu MD Pelvis X-Ray 09/08/178 Signed Impressions: Service Date/Time: Friday, September 08, 2017 22:18 - CONCLUSION: No acute disease. Nilesh Guzman Jr., MD Head CT 09/08/172207 Signed Impressions: Service Date/Time: Friday, September 08, 2017 22:32 - CONCLUSION: 1. Left supraorbital soft tissue swelling with tiny radiopaque foreign body as detailed above. 2. No acute intracranial abnormality. Nilesh Guzman Jr., MD Chest X-Ray 09/08/172207 Signed Impressions: Service Date/Time: Friday, September 08, 2017 22:17 - CONCLUSION: No acute disease. Nilesh Guzman Jr., MD Cervical Spine CT 09/08/172207 Signed Impressions: Service Date/Time: Friday, September 08, 2017 22:32 - CONCLUSION: 1. No fracture or dislocation. 2. Mild degenerative changes without neural impingement or central canal stenosis. Nilesh Guzman Jr., MD Objective Remarks GENERAL: Well-nourished, well-developed pleasant elderly female patient in [facility]. SKIN: Warm and dry. HEENT: Normocephalic. Left periorbital ecchymosis with left forehead laceration s/p repair, covered with dressing, CDI. Pupils equal and round. EOMI. Left eye subconjunctival hemorrhage. Mucous membranes pink and moist. CARDIOVASCULAR: Regular rate and rhythm. S1, S2 noted. No murmur appreciated. RESPIRATORY: No accessory muscle use. Clear to auscultation. Breath sounds equal bilaterally. GASTROINTESTINAL: Abdomen soft, non-tender, nondistended. Normoactive bowel sounds x4. MUSCULOSKELETAL: No obvious deformities. Extremities without clubbing, cyanosis , or edema. Left anterior knee with mild edema and ecchymosis. Left hand with mild edema and ecchymosis. NEUROLOGICAL: Awake and alert. No obvious cranial nerve deficits. Motor grossly within normal limits. 5/5 muscle strength in bilateral upper and lower extremities. Normal speech. Procedures none A/P Problem List: (1) Syncope ICD Code: R55 - Syncope and collapse (2) Fall ICD Code: W19.XXXA - Unspecified fall, initial encounter (3) Facial laceration ICD Code: S01.81XA - Laceration without foreign body of other part of head, initial encounter (4) Hypokalemia ICD Code: E87.6 - Hypokalemia (5) Renal insufficiency ICD Code: N28.9 - Disorder of kidney and ureter, unspecified (6) HTN (hypertension) ICD Code: I10 - Essential (primary) hypertension Assessment and Plan 82-year-old female with a PMH of HTN and CAD was brought to the ER by EMS secondary to fall with head injury. Syncope: pt w/ no recollection of events, sudden syncope/fall while walking at the [facility]. No h/o similar symptoms. Suspect vasovagal secondary to dehydration, +Orthostatics. Rule out underlying neurocardiogenic etiology workup underway negative so far pending stress test. -CT Head/C-Spine w/ no acute findings, images reviewed by me. -Troponins negative x2 and EKG shows sinus rhythm without acute ischemic changes, doubt ACS -monitor on telemetry. Follow-up EEG -Consult PT -Give IVF -Apply demarcus hose, Patient counseled on slow transitions -continue to monitor orthostatics. Consulted neurology and cardiology Fall with Head Injury/Facial Laceration with concussion: Family reports mechanical trip and fall, however pt cannot recall events, syncope work up as above -Head CT images reviewed, showed left supraorbital soft tissue swelling with tiny radiopaque foreign body -Facial laceration copiously irrigated by ER PA without any evidence of foreign body; laceration repaired with sutures -Other imaging including C-spine CT, pelvis xray, chest xray, and hand xray all reviewed and unremarkable for fracture -Pain control with norco prn, IV morphine prn breakthrough pain -apply ice packs. Improving symptoms STACY: Creatinine 1.04, BUN 30, GFR 50, no previous labs for comparison. -Check U/a -Give IVF for hydration -Repeat labs show improvement, Cr 0.73 -Continue to monitor Hypokalemia: K+ 3.1, suspect secondary to dehydration -given po KCl replacement -repeat BMP with K 3.9, resolved HTN: BP 190's on arrival, likely compounded by fall w/ head trauma and c/o headache. BP currently 140's, will monitor. -BP much improved, currently BP 120s/50s DVT Prophylaxis: SCD/Teds. Hold pharmacological prophylaxis secondary to closed head injury Discharge Planning Discharge in the morning if stress test negative Eduar Beck MD Sep 11, 2017 12:56
[2017-09-11] MEDS: SODIUM CHLORIDE 0.9% FLUSH 10 ML FLUSH IV FLUSH SCH ×2 (15:03→20:53)
[2017-09-11] MEDS: DOCUSATE SODIUM 50 MG/SENNA 8.6 MG TAB PO SCH ×2 (15:04→20:52)
[2017-09-11] MEDS: PANTOPRAZOLE SOD 20 MG DELAYED RELEASE TAB PO SCH (15:04)
[2017-09-11] MEDS: PRAVASTATIN SOD 40 MG TAB PO SCH (15:04)
[2017-09-11] MEDS: ACETAMINOPHEN/HYDROcodone 325 MG/5 MG TAB PO PRN (17:20)
--- NOTE | 2017-09-11 19:31 | MG ---
cc: CARIE PETERS M.D. Lab No: Date: 09/11/2017 Age: Sex: F Race: TEST NUMBER [id number] An 82-year-old woman. Aspirin. Head injury. DESCRIPTION An 8 Hz 60 microvolt symmetric posterior rhythm is noted. The recording overall is synchronous and symmetric. No hemisphere asymmetries are noted. No epileptiform or seizure activity is seen. I did not see any epileptiform or seizure activity. IMPRESSION A normal awake EEG. Hyperventilation and photic stimulation was performed without significant change in the background. MD LIBIA Ivy/KK /5:45 PM /7:16 PM
[2017-09-12 00:07] VITALS: PULSE 63
[2017-09-12 00:37] VITALS: BP_SYST 146; BP_SYST 199; BP_DIAS 78; BP_DIAS 89; PULSE 67; RESP 18; TEMP 98.7; O2SAT 98
[2017-09-12 04:07] VITALS: PULSE 61
[2017-09-12 04:30] VITALS: BP 131/62; PULSE 72; RESP 18; TEMP 97.8; O2SAT 96
[2017-09-12 08:00] VITALS: PULSE 77
[2017-09-12] MEDS ORDERED: REGADENOSON INJ 0.4 MG/5 ML SYR ONE (08:18)
[2017-09-12] MEDS ORDERED: HYDR-3516 PO (08:50)
[2017-09-12] MEDS: ASPIRIN 81 MG CHEW TAB CHEW SCH (09:00)
[2017-09-12] MEDS: SODIUM CHLORIDE 0.9% FLUSH 10 ML FLUSH IV FLUSH SCH (09:00)
--- NOTE | 2017-09-12 09:20 | RADRPT ---
EXAM DATE/TIME: 09/11/2017 13:43 [place] COMPARISON: No previous studies available for comparison. INDICATIONS : Syncope. Abnormal EKG. DOSE: 30 mCi Tc99m Myoview at stress. 30 mCi Tc99m Myoview at rest. 0.4 mg Lexiscan STRESS SYMPTOMS: Flushed. EJECTION FRACTION: 69% MEDICAL HISTORY : Hypertension. Gastroesophageal reflux disease. SURGICAL HISTORY : Hysterectomy. Right shoulder. ENCOUNTER: Initial ACUITY: 1 day PAIN SCALE: 0/10 LOCATION: chest TECHNIQUE: The patient underwent pharmacologic stress with infusion of prescribed dose. Continuous ECG tracing was monitored during stress. Gated SPECT imaging was performed after stress and conventional SPECT i maging was performed at rest. The examination was performed on a SPECT/CT scanner, both attenuation and non-corrected datasets were reviewed. FINDINGS: DISTRIBUTION: The maximum perfused segment at stress is in the anterior wall. PERFUSION STUDY: There is 10-20% redistribution involving the septum and lateral wall. No significant reversible defec ts observed. GATED STUDY: There is intact wall motion and thickening without hypokinetic or dyskinetic segments. CONCLUSION: No significant reversible defects observed to suggest acute ischemia. RISK CATEGORY: Low Nilesh Guzman Jr., MD on September 12, 2017 at 9:15 Board Certified Radiologist. This report was verified electronically.
[2017-09-12] MEDS: PANTOPRAZOLE SOD 20 MG DELAYED RELEASE TAB PO SCH (11:00)
[2017-09-12] MEDS: DOCUSATE SODIUM 50 MG/SENNA 8.6 MG TAB PO SCH (11:00)
[2017-09-12] MEDS: PRAVASTATIN SOD 40 MG TAB PO SCH (11:01)
[2017-09-12 11:31] VITALS: BP 151/71; PULSE 64; RESP 24; TEMP 97.5; O2SAT 98
--- NOTE | 2017-09-12 12:48 | HHI.DS ---
Discharge Summary Admission Date Sep 09, 2017 at 02:26 Discharge Date: Sep 12, 2017 Admitting Diagnosis syncope (1) Syncope ICD Code: R55 - Syncope and collapse Diagnosis: Principal (2) Fall ICD Code: W19.XXXA - Unspecified fall, initial encounter Diagnosis: Principal (3) Facial laceration ICD Code: S01.81XA - Laceration without foreign body of other part of head, initial encounter Diagnosis: Principal (4) Hypokalemia ICD Code: E87.6 - Hypokalemia Diagnosis: Secondary (5) HTN (hypertension) ICD Code: I10 - Essential (primary) hypertension Diagnosis: Secondary Procedures none Brief History - From Admission This is an 82-year-old female with a PMH of HTN and CAD was brought to the ER by EMS secondary to fall with head injury. [place], states she was walking w/ Grandson when had sudden fall. Pt cannot recall event , states she remembers walking and then waking up with people around her. No h/ o similar symptoms in the past. CT Head/C-Spine w/ no acute findings. Hand/ Pelvis X-ray negative. +facial laceration s/p repair in ER. BP 198/88, HR 74, O2 sat 96% on arrival. Orthostatics positive. BP currently 142/91, HR 60. CBC unremarkable. K+ 3.1. Creatinine 1.04, no previous labs for comparison. Trop negative. While in ER, patient was assisted out of bed to ambulate, had sudden episode of dizziness and diaphoresis w/ near syncopal event. CBC/BMP: 09/09/17 0755 09/09/17 0755 Significant Findings Laboratory Tests Test 09/10/17 01:55 Troponin I LESS THAN 0.02 NG/ML Imaging Last Impressions Myocardial Perfusion Scan Nuc Med 09/11/17 0000 Signed Impressions: Service Date/Time: Monday, September 11, 2017 13:43 - CONCLUSION: No significant reversible defects observed to suggest acute ischemia. RISK CATEGORY: Low Nilesh Guzman Jr., MD Carotid Artery Ultrasound 09/11/17 0000 Signed Impressions: Service Date/Time: Monday, September 11, 2017 07:49 - CONCLUSION: 1. Minimal plaque in both carotid bulbs with extension into the right internal. 2. Tortuosity of the left internal carotid artery. 3. However, no sonographic or Doppler findings of a hemodynamically significant stenosis. Antegrade flow in both vertebral arteries. Carlos Manuel Thacker MD Hand X-Ray 09/09/17 0000 Signed Impressions: Service Date/Time: Saturday, September 09, 2017 00:10 - CONCLUSION: 1. There is no evidence of acute fracture. 2. Severe osteoarthritis Jason Chiu MD Pelvis X-Ray 09/08/172207 Signed Impressions: Service Date/Time: Friday, September 08, 2017 22:18 - CONCLUSION: No acute disease. Nilesh Guzman Jr., MD Head CT 09/08/172207 Signed Impressions: Service Date/Time: Friday, September 08, 2017 22:32 - CONCLUSION: 1. Left supraorbital soft tissue swelling with tiny radiopaque foreign body as detailed above. 2. No acute intracranial abnormality. Nilesh Guzman Jr., MD Chest X-Ray 09/08/172207 Signed Impressions: Service Date/Time: Friday, September 08, 2017 22:17 - CONCLUSION: No acute disease. Nilesh Guzman Jr., MD Cervical Spine CT 09/08/172207 Signed Impressions: Service Date/Time: Friday, September 08, 2017 22:32 - CONCLUSION: 1. No fracture or dislocation. 2. Mild degenerative changes without neural impingement or central canal stenosis. Nilesh Guzman Jr., MD PE at Discharge GENERAL: Well-nourished, well-developed pleasant elderly female patient in [facility]. SKIN: Warm and dry. HEENT: Normocephalic. Left periorbital ecchymosis with left forehead laceration s/p repair, covered with dressing, CDI. Pupils equal and round. EOMI. Left eye subconjunctival hemorrhage. Mucous membranes pink and moist. CARDIOVASCULAR: Regular rate and rhythm. S1, S2 noted. No murmur appreciated. RESPIRATORY: No accessory muscle use. Clear to auscultation. Breath sounds equal bilaterally. GASTROINTESTINAL: Abdomen soft, non-tender, nondistended. Normoactive bowel sounds x4. MUSCULOSKELETAL: No obvious deformities. Extremities without clubbing, cyanosis , or edema. Left anterior knee with mild edema and ecchymosis. Left hand with mild edema and ecchymosis. NEUROLOGICAL: Awake and alert. No obvious cranial nerve deficits. Motor grossly within normal limits. 5/5 muscle strength in bilateral upper and lower extremities. Normal speech. Hospital Course 82-year-old female with a PMH of HTN and CAD was brought to the ER by EMS secondary to fall with head injury. Syncope: pt w/ no recollection of events, sudden syncope/fall while walking at the [facility]. No h/o similar symptoms. Suspect vasovagal secondary to dehydration, +Orthostatics. Rule out underlying neurocardiogenic etiology workup underway negative . -CT Head/C-Spine w/ no acute findings, images reviewed by me. -Troponins negative x2 and EKG shows sinus rhythm without acute ischemic changes, doubt ACS . Negative stress test -monitor on telemetry. Negative EEG -Consulted PT -Given IVF -Apply demarcus hose, Patient counseled on slow transitions -continue to monitor orthostatics. Consulted neurology and cardiology Fall with Head Injury/Facial Laceration with concussion: Family reports mechanical trip and fall, however pt cannot recall events, syncope work up as above -Head CT images reviewed, showed left supraorbital soft tissue swelling with tiny radiopaque foreign body -Facial laceration copiously irrigated by ER PA without any evidence of foreign body; laceration repaired with sutures. Discontinue sutures September 15 2017 -Other imaging including C-spine CT, pelvis xray, chest xray, and hand xray all reviewed and unremarkable for fracture -Pain control with norco prn, IV morphine prn breakthrough pain -apply ice packs. Improving symptoms STACY: Creatinine 1.04, BUN 30, GFR 50, no previous labs for comparison. -Check U/a -Give IVF for hydration -Repeat labs show improvement, Cr 0.73 -Continue to monitor Hypokalemia: K+ 3.1, suspect secondary to dehydration -given po KCl replacement -repeat BMP with K 3.9, resolved HTN: BP 190's on arrival, likely compounded by fall w/ head trauma and c/o headache. BP currently 140's, will monitor. -BP much improved, currently BP 120s/50s DVT Prophylaxis: SCD/Teds. Hold pharmacological prophylaxis secondary to closed head injury Pt Condition on Discharge: Stable Discharge Disposition: Discharge Home Discharge Time: > 30 minutes Discharge Instructions DIET: Follow Instructions for: Heart Healthy Diet Activities you can perform: Regular-No Restrictions Activities to Avoid: Driving Follow up Referrals: PCP Follow-up - 2-3 Days New Medications: Hydrocodone/Acetaminophen (Hydrocodone-Acetamin 5-325 mg) 5 Mg-325 Mg Tablet 1 TAB PO Q6H PRN for PAIN SCALE 3 TO 10, #28 TAB Continued Medications: Aspirin (Aspirin) 81 Mg Chew 81 MG CHEW DAILY, TAB 0 Refills Start aspirin 09/18/17 Omeprazole (Omeprazole) 20 Mg Tab 20 MG PO DAILY, #30 TAB 0 Refills Simvastatin (Simvastatin) 20 Mg Tab 20 MG PO DAILY for Cholesterol Management, #30 TAB 0 Refills Discontinued Medications: Hydrochlorothiazide (Hydrochlorothiazide) 12.5 Mg Tab 12.5 MG PO DAILY, #30 TAB 0 Refills Eduar Beck MD Sep 12, 2017 12:48
== END 2017-09-12 17:40 | disposition home or self-care (01) ==
LOC: NEPE 21:40 → NEDA 09-09 02:26 → NEPHCDU 09-09 03:39 → NEPFCDU 09-10 19:28
PROVIDERS: ADMIT Internal Medicine; ATTEND Internal Medicine
DX: S06.0X9A Concussion with loss of consciousness of unspecified duration, initial encounter (principal); S01.81XA Laceration without foreign body of other part of head, initial encounter; S60.512A Abrasion of left hand, initial encounter; W01.0XXA Fall on same level from slipping, tripping and stumbling without subsequent striking against object, initial encounter; R11.0 Nausea; I25.10 Atherosclerotic heart disease of native coronary artery without angina pectoris; I10 Essential (primary) hypertension; R55 Syncope and collapse; E87.6 Hypokalemia; E86.0 Dehydration; R61 Generalized hyperhidrosis; N17.9 Acute kidney failure, unspecified; K21.9 Gastro-esophageal reflux disease without esophagitis; E78.5 Hyperlipidemia, unspecified
CPT/HCPCS: 12011; 70450; 71010; 72125; 72170; 73130; 78452; 80048; 80053; 84484; 85025; 85610; 85730; 90471; 90714; 93005; 93017; 93306; 93880; 95819; 96361; 96374; 96375; 96376; 97162; 99285; A9502; G0378; G8987; G8988; J2270; J2405; J2785; J7030